=== PATIENT | female | born 1950 | race Caucasian/White ===

== ENCOUNTER 2021-04-28 10:01 | Outpatient (CLI) | payer MEDICARE, SELFPAY ==
--- NOTE | ~2021-04-28 | DEXA_ITS ---
Bone Density Report Name: HUANG HUYNH Age: 70 Sex: Female Ethnicity: White Date of : 1950 Indication: osteopenia; cancer; postmenopausal Referring Provider: RO VAUGHN Study: Bone densitometry was performed. Exam Date: April 28, 2021 Accession number: [id number] Bone Density: Region BMD T-score Z-score Classification AP Spine (L1, L2, L4) 0.908 -1.1 1.0 Osteopenia Femoral Neck (Left) 0.693 -1.4 0.5 Osteopenia Total Hip (Left) 0.711 -1.9 -0.3 Osteopenia Total Hip Bilateral Avg 0.687 -2.1 -0.5 Osteopenia Femoral Neck (Right) 0.651 -1.8 0.1 Osteopenia Total Hip (Right) 0.661 -2.3 -0.7 Osteopenia World Health Organization criteria for BMD impression classify patients as: Normal (T-score at or above -1.0), Osteopenia (T-score between -1.0 and -2.5), or Osteoporosis (T-score at or below -2.5). 10-year Fracture Risk(1): Major Osteoporotic Fracture 9.9% Hip Fracture 1.9% Reported Risk Factors: [place] (), Neck BMD=0.651, BMI=20.9 (1) FRAX(R) Version 3.08. Fracture probability calculated for an untreated patient. Fracture probability may be lower if the patient has received treatment. Previous Exams: Region Exam Age BMD T-score BMD Change BMD Change Date g/cm2 vs Baseline vs Previous AP Spine(L1, L2, L4) 04/28/2021 70 0.908 -1.1 -0.114(-11.2%) 0.000(0.0%) 09/06/2017 67 0.908 -1.1 -0.114(-11.2%) -0.014(-1.5%)# 08/15/2011 61 0.922 -1.0 -0.100(-9.8%)# -0.055(-5.6%)# 07/13/2007 56 0.976 -0.5 -0.046(-4.5%)* -0.046(-4.5%)* 11/09/2001 51 1.022 -0.1 Total Hip(Left) 04/28/2021 70 0.711 -1.9 -0.207(-22.6%) -0.017(-2.3%) 09/06/2017 67 0.728 -1.8 -0.191(-20.8%) -0.033(-4.4%)# 08/15/2011 61 0.761 -1.5 -0.157(-17.1%) 0.030(4.1%)# 07/13/2007 56 0.731 -1.7 -0.188(-20.4%) -0.188(-20.4%) 11/09/2001 51 0.918 -0.2 Total Hip(Right) 04/28/2021 70 0.661 -2.3 -0.124(-15.8%) -0.037(-5.3%)* 09/06/2017 67 0.698 -2.0 -0.087(-11.1%) -0.035(-4.8%)# 08/15/2011 61 0.733 -1.7 -0.052(-6.6%)# 0.022(3.0%)# 07/13/2007 56 0.712 -1.9 -0.073(-9.4%)* -0.073(-9.4%)* 11/09/2001 51 0.785 -1.3 *Denotes significance at 95% confidence level, LSC for AP Spine = 0.022 g/cm2, LSC for Total Hip = 0.027 g/cm2 Clinical Information Provided by Patient: Has used the following medications: Vitamin D Has the following medical conditions: Cancer Patient maximum height was 63 Menopause Age: 50 Onset of menses at age 9 Number
== END 2021-04-28 10:02 | disposition home or self-care (01) ==
LOC: ANHIMG 10:03
PROVIDERS: PCP Family Medicine; Visit Provider Family Medicine
DX: Z78.0 Asymptomatic menopausal state (principal); M85.88 Other specified disorders of bone density and structure, other site; M85.852 Other specified disorders of bone density and structure, left thigh; M85.851 Other specified disorders of bone density and structure, right thigh
CPT/HCPCS: 77080

== ENCOUNTER 2022-02-25 11:05 | Outpatient (NON) | payer MEDICARE, SELFPAY ==
[2022-02-25 19:36] LABS: IFOB Positive Control Positive; Immunochemical Fecal Occult Bl Positive (N)
== END 2022-02-25 11:06 | disposition home or self-care (01) ==
LOC: ANHGOSHLAB 11:06
PROVIDERS: PCP Family Medicine; Visit Provider Family Medicine
DX: Z12.11 Encounter for screening for malignant neoplasm of colon (principal)
CPT/HCPCS: 82274

== ENCOUNTER 2022-04-20 08:28 | Outpatient (NON) | payer MEDICARE, SELFPAY ==
[2022-04-20 20:28] LABS: IFOB Positive Control Positive; Immunochemical Fecal Occult Bl Negative (N)
== END 2022-04-20 08:29 | disposition home or self-care (01) ==
LOC: ANHGOSHLAB 08:29
PROVIDERS: PCP Family Medicine; Visit Provider Family Medicine
DX: R19.5 Other fecal abnormalities (principal)
CPT/HCPCS: 82274

== ENCOUNTER 2024-02-06 09:01 | Outpatient (CLI) | payer MEDICARE, SELFPAY ==
--- NOTE | ~2024-02-06 | US_ITS ---
Limited Abdominal Sonogram: Real-time sonographic imaging of the right upper quadrant was performed. Clinical History: Right upper quadrant pain Findings: The liver appears normal with no evidence of mass lesion or bile duct dilatation. Main por brittany vein demonstrates normal direction of flow. The gallbladder is well distended, and appears normal with no evidence of gallstone or wall thickening. The common bile duct measures 2 mm. The visualize d pancreas, aorta, and IVC are unremarkable. Impression: No significant abnormality seen. Reviewed, dictated and finalized at location M. Impression: No significant abnormality seen.
== END 2024-02-06 09:02 | disposition home or self-care (01) ==
LOC: GOSHIMG 09:02
PROVIDERS: PCP Family Medicine; Visit Provider Family Medicine
DX: R10.11 Right upper quadrant pain (principal)
CPT/HCPCS: 76705

== ENCOUNTER 2024-02-23 08:47 | Outpatient (CLI) | payer MEDICARE, SELFPAY ==
--- NOTE | ~2024-02-23 | CT_ITS ---
EXAMINATION: CT abdomen pelvis wo con DATE: 02/23/2024 09:03 INDICATION: Abnormal weight loss. Nausea. TECHNIQUE: Computed tomography (CT) of the abdomen and pelvis was performed without intravenous contr ast. Automated exposure control and iterative reconstruction technique were employed. The dose-length product was 433.99 mGy-cm. COMPARISON: Chest CT 05/13/15 FINDINGS: The visualized portions of the lung bases demonstrate worsened airspace opacities and bronc hiectasis in right middle lobe. Again seen are airspace opacities and bronchiectasis in lingula. Ther e are worsened tree-in-bud opacities and centrilobular nodules in the lower lobes. No pleural effusio n. The heart size is normal. No pericardial effusion. There are bilateral breast implants. The liver, gallbladder, pancreas, and adrenal glands are normal. 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 The kidneys are normal. There are no dilated loops of bowel. The append ix is normal. There are no pathologically enlarged lymph nodes. There is no free intraperitoneal flui d. There is severe lumbar spondylosis. IMPRESSION: 1. 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 Reviewed, dictated and finalized at location B.
== END 2024-02-23 08:48 | disposition home or self-care (01) ==
PROVIDERS: PCP Family Medicine; Visit Provider Family Medicine
DX: R11.0 Nausea (principal); R63.4 Abnormal weight loss; R19.5 Other fecal abnormalities; J98.4 Other disorders of lung
CPT/HCPCS: 74176